=== PATIENT | male | born 1955 | race Caucasian/White ===

== ENCOUNTER 2016-05-08 12:40 | Emergency (ER) | payer OTHER ==
[2016-05-08 12:47] VITALS: BP 141/78; PULSE 86; TEMP 98.5; BMI 27.6
--- NOTE | 2016-05-08 14:08 | PDOC ---
History of Present Illness - General Chief Complaint: Cold Symptoms Stated Complaint: FEVER, NOSE BLEED, HEADACHE,COUGH Time Seen by Provider: 05/08/16 13:07 History Source: Patient Exam Limitations: No Limitations - History of Present Illness Initial Comments: 05/08/16 13:17 Patient here with complaints of sore throat, nasal congestion, left ear pain, and myalgia. Patient states hasn't taking Tylenol flu with moderate effect but decided come to the ER for further evaluation. Patient states the diabetic and checked his sugar this morning which was 120. Patient denies difficulty breathing, lower extremity edema, chest pain, headache, or dizziness. Timing/Duration: reports: constant Severity: reports: moderate Associated Symptoms: reports: cough, earache (left), nasal congestion, sore throat Past History - Past Medical History Allergies/Adverse Reactions: Allergies Allergy/AdvReac Type Severity Reaction Status Date / Time No Known Allergies Allergy Verified 05/08/16 12:47 Home Medications: Ambulatory Orders Glipizide 10 mg PO DAILY 06/27/14 Ibuprofen [Motrin] 800 mg PO TID #20 tablet 06/27/14 Metformin HCl 850 mg PO DAILY 06/27/14 Ondansetron [Zofran *Odt*] 4 mg SL TID #30 od.tablet 06/27/14 Simvastatin [Zocor -] 20 mg PO HS 06/27/14 Amoxicillin - [Amoxicillin 500mg Capsule -] 500 mg PO BID #14 capsule 05/08/16 Cardiac Disorders: Yes Diabetes: Yes (NIDDM) HTN: Yes Hypercholesterolemia: Yes - Surgical History Cardiac Surgery: Yes (STENT) - Psycho/Social/Smoking Cessation Hx Anxiety: No Suicidal Ideation: No Smoking History: Current some day smoker Have you smoked in the past 12 months: No Number of Cigarettes Smoked Daily: 3 Information on smoking cessation initiated: No Hx Alcohol Use: Yes (SOCIAL) Drug/Substance Use Hx: No Substance Use Type: None Patient Lives Alone: No Lives with/in: spouse/SO Review of Systems - Review of Systems Able to Perform ROS?: Yes Constitutional: No: Symptoms Reported HEENTM: Yes: Ear Pain, Nose Congestion, Throat Pain Respiratory: Yes: Symptoms reported, Cough. No: Shortness of Breath Cardiac (ROS): No: Symptoms Reported Musculoskeletal: No: Symptoms Reported Integumentary: No: Symptoms Reported Neurological: No: Symptoms reported Endocrine: No: Symptoms Reported Hematologic/Lymphatic: No: Symptoms Reported *Physical Exam - Vital Signs Last Vital Signs Temp Pulse Resp BP Pulse Ox 98.5 F 86 20 141/78 97 05/08/16 12:42 05/08/16 12:42 05/08/16 12:42 05/08/16 12:42 05/08/16 12:42 - Physical Exam General Appearance: Yes: Nourished, Appropriately Dressed. No: Apparent Distress HEENT: positive: EOMI, SOLA, Pharyngeal Erythema (mild bilateral. no exudate. ) , TM Erythema (left ). negative: Pale Conjunctivae Neck: positive: Supple. negative: Lymphadenopathy (R), Lymphadenopathy (L) Respiratory/Chest: positive: Lungs Clear, Normal Breath Sounds. negative: Respiratory Distress, Accessory Muscle Use Cardiovascular: positive: Regular Rhythm, Regular Rate. negative: Murmur Gastrointestinal/Abdominal: positive: Soft. negative: Tenderness Neurologic: positive: Motor Strength 5/5 (ambulatory) Medical Decision Making - Medical Decision Making 05/08/16 14:13 Patient with URI complaints with pharyngeal erythema and left tympanic erythema. Patient ordered for secondary to myalgia, arthralgia, cough, nasal congestion and intermittent frontal headache for the past 2 days. Patient states took Tylenol flu at 6 AM which did alleviate most of his symptoms including his chills and myalgia. 05/08/16 14:14 influenza swab -. Patient will be discharged on amoxicillin secondary to otitis media to left TM. *DC/Admit/Observation/Transfer Diagnosis at time of Disposition: Otitis media Qualifiers: Otitis media type: unspecified Laterality: left Chronicity: acute - Discharge Dispostion Disposition: HOME Condition at time of disposition: Good - Prescriptions Prescriptions: Amoxicillin - [Amoxicillin 500mg Capsule -] 500 mg PO BID #14 capsule - Referrals Referrals: Maria L Pierre MD [Primary Care Provider] - - Patient Instructions Printed Discharge Instructions: DI for Otitis Media (Middle Ear Infection)- Child Additional Instructions: Please take antibiotics as prescribed until completed. Please take Motrin 600 mg for discomfort. Drink plenty of fluids and rest.
== END 2016-05-08 14:24 | disposition home or self-care (01) ==
LOC: JERFT 12:40
DX: J06.9 Acute upper respiratory infection, unspecified (principal); H66.92 Otitis media, unspecified, left ear; I10 Essential (primary) hypertension; E11.9 Type 2 diabetes mellitus without complications; Z79.84 Long term (current) use of oral hypoglycemic drugs; E78.00 Pure hypercholesterolemia, unspecified; Z95.5 Presence of coronary angioplasty implant and graft; F17.210 Nicotine dependence, cigarettes, uncomplicated
CPT/HCPCS: 87804; 99281-25

== ENCOUNTER 2016-08-15 14:24 | Emergency (ER) | payer OTHER ==
[2016-08-15 14:32] VITALS: BP 125/60; PULSE 88; TEMP 98; BMI 27.6
--- NOTE | 2016-08-15 15:34 | PDOC ---
History of Present Illness - General Chief Complaint: Eye Problem Stated Complaint: RT EYE IRRITATION Time Seen by Provider: 08/15/16 15:18 History Source: Patient Exam Limitations: No Limitations - History of Present Illness Initial Comments: 08/15/16 15:34 My Chief Complaint: rt. eye redness History of Present Illness: Pt. is a 61-year-old male with a history of hyperlipidemia ifo-xzgtnio-[id number] diabetes and hypertension here today reporting that he noticed 3 days ago redness of sclera that occurred without any know injury. His any pain in right eye or any change in his vision. Patient reports that this is the first time he noticed anything like this prior. Patient does not have an chief passenger ship steward/stewardess. Patient wears bifocals. No discharge from rt. eye or photophobia. 08/15/16 15:42 Timing/Duration: changing over time (lessening ) Severity: mild Associated Symptoms: reports: denies symptoms Past History - Past Medical History Allergies/Adverse Reactions: Allergies Allergy/AdvReac Type Severity Reaction Status Date / Time No Known Allergies Allergy Verified 08/15/16 14:29 Home Medications: Ambulatory Orders Glipizide 10 mg PO DAILY 06/27/14 Ibuprofen [Motrin] 800 mg PO TID #20 tablet 06/27/14 Metformin HCl 850 mg PO DAILY 06/27/14 Ondansetron [Zofran *Odt*] 4 mg SL TID #30 od.tablet 06/27/14 Simvastatin [Zocor -] 20 mg PO HS 06/27/14 Amoxicillin - [Amoxicillin 500mg Capsule -] 500 mg PO BID #14 capsule 05/08/16 Clopidogrel Bisulfate [Plavix] 300 mg PO ASDIR 08/15/16 Lisinopril [Prinivil] 5 mg PO ASDIR 08/15/16 Cardiac Disorders: Yes (CAD) Diabetes: Yes (NIDDM) HTN: Yes Hypercholesterolemia: Yes - Surgical History Cardiac Surgery: Yes (STENT) - Psycho/Social/Smoking Cessation Hx Anxiety: No Suicidal Ideation: No Smoking History: Never smoked Have you smoked in the past 12 months: No Number of Cigarettes Smoked Daily: 3 Information on smoking cessation initiated: Yes 'Breaking Loose' booklet given: 08/15/16 Hx Alcohol Use: No Drug/Substance Use Hx: No Substance Use Type: None Review of Systems - Review of Systems Able to Perform ROS?: Yes Constitutional: No: Symptoms Reported HEENTM: Yes: Other (redness of sclera rt. eye partial ) Respiratory: No: Symptoms reported Cardiac (ROS): No: Symptoms Reported ABD/GI: No: Symptoms Reported : No: Symptoms Reported Integumentary: No: Symptoms Reported Neurological: No: Symptoms reported *Physical Exam - Vital Signs Last Vital Signs Temp Pulse Resp BP Pulse Ox 98.0 F 88 18 125/60 100 08/15/16 14:30 08/15/16 14:30 08/15/16 14:30 08/15/16 14:30 08/15/16 14:30 - Physical Exam General Appearance: Yes: Appropriately Dressed HEENT: positive: EOMI, SOLA, Other (sclera rt. eye at 6 pm approx 0. 5 cm diameter of subconjunctiva hemorrhage) Respiratory/Chest: positive: Lungs Clear, Normal Breath Sounds Cardiovascular: positive: Regular Rhythm, Regular Rate, S1, S2 Medical Decision Making - Medical Decision Making 08/15/16 15:37 Pt. is a 61-year-old male with a history of hyperlipidemia non-insulin- dependent diabetes and hypertension here today reporting that he noticed 3 days ago redness of sclera that occurred without any know injury. His any pain in right eye or any change in his vision. Patient reports that this is the first time he noticed anything like this prior. Patient does not have an chief passenger ship steward/stewardess. Patient wears bifocals. right eye subconjunctiva hemorrhage non traumatic PLAN: snellen with glasses snellen 20/20 OD, 20/20 OS, 20/20 OU follow up with opthomologist tomorrow *DC/Admit/Observation/Transfer Diagnosis at time of Disposition: Subconjunctival hemorrhage of right eye - Discharge Dispostion Disposition: HOME Condition at time of disposition: Stable - Referrals Referrals: Maria L Pierre MD [Primary Care Provider] - - Patient Instructions Additional Instructions: With chief passenger ship steward/stewardess Dr.Smitha Cuellar [phone] as soon as possible Return to Emergency if symptoms worsen any eye pain or loss of vision Patient voiced understanding of discharge instructions and all questions were answered
== END 2016-08-15 16:01 | disposition home or self-care (01) ==
LOC: JERFT 14:24
DX: H11.31 Conjunctival hemorrhage, right eye (principal); I10 Essential (primary) hypertension; E11.9 Type 2 diabetes mellitus without complications; Z79.84 Long term (current) use of oral hypoglycemic drugs; E78.00 Pure hypercholesterolemia, unspecified
CPT/HCPCS: 99281-25

== ENCOUNTER 2022-10-09 19:26 | Emergency (ER) | payer OTHER ==
[2022-10-09 19:31] VITALS: TEMP 97.4; BMI 25.0
[2022-10-09] MEDS ORDERED: SODIUM CHLORIDE 0.9% 500 ML INFUS.BAG IV ONE (19:56)
[2022-10-09] MEDS ORDERED: SUCRALFATE 1 GM/10 ML UNIT DOSE CUPS PO ONE (19:57)
[2022-10-09] MEDS ORDERED: FAMOTIDINE 20 MG/50 ML IVPB 20 MG/50 ML MG IVPB ONE ×2 (19:57→20:08)
[2022-10-09] MEDS ORDERED: ACETAMINOPHEN 1000 MG/100 ML BAG IVPB ONE (19:57)
[2022-10-09] MEDS ORDERED: ACETAMINOPHEN INJECTION 100 ML IVPB ONE (20:07)
[2022-10-09] MEDS ORDERED: SUCRALFATE 1 GM TABLET (FP) ONE (20:07)
[2022-10-09 20:34] LABS: BASO % 0.9 % (0-2.0); EOS % 5.7 % (0-4.5); HEMATOCRIT 40.5 % (35.4-49); HEMOGLOBIN 14.2 GM/dL (11.7-16.9); LYMPH % 24.4 % (8-40); MCH 31.1 pg (25.7-33.7); MEAN CELL VOLUME 88.9 fl (80-96); MEAN PLT VOLUME 8.6 fl (7.5-11.1); MONO % 7.2 % (3.8-10.2); NEUT % 61.8 % (42.8-82.8); PLATELET COUNT 230 10^3/uL (134-434); RBC 4.56 M/mm3 (4.00-5.60); RDW 13.4 % (11.9-15.9); WHITE BLOOD COUNT 8.4 K/mm3 (4.0-10.0)
[2022-10-09] MEDS ORDERED: SUCRALFATE 1 GM TABLET (FP) PO ONE (20:39)
[2022-10-09 20:55] LABS: POTASSIUM 4.7 mmol/L (3.5-5.1)
[2022-10-09 20:57] LABS: ALBUMIN 4.4 g/dl (3.4-5.0); BLOOD UREA NITROGEN 13.8 mg/dL (7-18); CALCIUM 9.2 mg/dL (8.5-10.1)
[2022-10-09 21:02] LABS: BILIRUBIN,TOTAL 0.3 mg/dL (0.2-1); TOT PROT 7.5 g/dl (6.4-8.2)
[2022-10-10 00:18] VITALS: BP 145/64; PULSE 78; RESP 17
== END 2022-10-10 00:19 | disposition home or self-care (01) ==
LOC: JER 19:26
PROC: 3E033GC Introduction of Other Therapeutic Substance into Peripheral Vein, Percutaneous Approach (ICD-10-PCS; principal; 2022-10-09)
PROC: 3E033NZ Introduction of Analgesics, Hypnotics, Sedatives into Peripheral Vein, Percutaneous Approach (ICD-10-PCS; 2022-10-09)
DX: R42 Dizziness and giddiness (principal); R14.0 Abdominal distension (gaseous); R10.9 Unspecified abdominal pain; Z20.822 Contact with and (suspected) exposure to COVID-19
CPT/HCPCS: 0241U-QW; 36415; 80053; 82962; 84484; 85025; 93005; 93010; 99284-25

== ENCOUNTER 2024-05-27 11:46 | Emergency (ER) | payer OTHER ==
[2024-05-27 12:05] VITALS: BMI 25.0
[2024-05-27] MEDS ORDERED: ACETAMINOPHEN 500 MG TABLET (FP) ONE (13:08)
[2024-05-27] MEDS: ACETAMINOPHEN 500 MG TABLET (FP) PO ONE (13:13)
[2024-05-27] MEDS ORDERED: ALBUTEROL SO4 2.5/IPRATROPIUM 0.5 INH SOL 3 ML VIAL.NEB. NEB ONE (14:08)
[2024-05-27 14:31] VITALS: BP 118/50; PULSE 77; RESP 19; TEMP 99.7
[2024-05-27] MEDS: ALBUTEROL SO4 2.5/IPRATROPIUM 0.5 INH SOL 3 ML VIAL.NEB. NEB ONE (14:34)
== END 2024-05-27 15:38 | disposition home or self-care (01) ==
LOC: JER 11:46
PROC: 3E0F7GC Introduction of Other Therapeutic Substance into Respiratory Tract, Via Natural or Artificial Opening (ICD-10-PCS; principal; 2024-05-27)
DX: J10.1 Influenza due to other identified influenza virus with other respiratory manifestations (principal); R51.9 Headache, unspecified; R05.9 Cough, unspecified; Z20.822 Contact with and (suspected) exposure to COVID-19
CPT/HCPCS: 0241U-QW; 71046-TC-FY; 82962; 99284-25

== ENCOUNTER 2024-05-28 17:56 | Inpatient (IN) | payer OTHER ==
[2024-05-28 18:03] VITALS: BMI 25.0
[2024-05-28] MEDS ORDERED: MAG HYDROX/AL HYDROX/SIMETH 30 ML UNIT-DOSE CUP ONE (19:22)
[2024-05-28] MEDS ORDERED: ONDANSETRON 4 MG/2 ML VIAL ONE (19:22)
[2024-05-28] MEDS ORDERED: FAMOTIDINE 20 MG/50 ML IVPB 20 MG/50 ML MG IVPB ONE (19:22)
[2024-05-28] MEDS: ONDANSETRON 4 MG/2 ML VIAL IVPUSH ONE (19:38)
[2024-05-28] MEDS: LACTATED RINGERS SOLUTION 1000 ML INFUS.BAG IV ONE (19:38)
[2024-05-28] MEDS: FAMOTIDINE 20 MG/50 ML IVPB 20 MG/50 ML MG IVPB ONE (19:38)
[2024-05-28] MEDS: MAG HYDROX/AL HYDROX/SIMETH 30 ML UNIT-DOSE CUP PO ONE (19:48)
[2024-05-28 20:03] LABS: BASO % 0.2 % (0-2.0); HEMATOCRIT 38.5 % (35.4-49); HEMOGLOBIN 13.3 GM/dL (11.7-16.9); LYMPH % 6.9 % (8-40); MCH 30.5 pg (25.7-33.7); MCHC 34.5 g/dl (32.0-35.9); MEAN CELL VOLUME 88.6 fl (80-96); MEAN PLT VOLUME 8.8 fl (7.5-11.1); NEUT % 84.9 % (42.8-82.8); PLATELET COUNT 147 10^3/uL (134-434); RBC 4.35 M/mm3 (4.00-5.60); RDW 13.2 % (11.9-15.9); WHITE BLOOD COUNT 6.2 K/mm3 (4.0-10.0)
[2024-05-28 20:24] LABS: CHLORIDE 82 mmol/L (98-107); POTASSIUM 3.9 mmol/L (3.5-5.1)
[2024-05-28] MEDS ORDERED: ACETAMINOPHEN INJECTION 100 ML ONE (20:24)
[2024-05-28 20:26] LABS: ALBUMIN 3.8 g/dl (3.4-5.0)
[2024-05-28 20:27] LABS: BLOOD UREA NITROGEN 10.3 mg/dL (7-18); CALCIUM 8.2 mg/dL (8.5-10.1); CO2 25 mmol/L (21-32); GLUCOSE,RANDOM 187 mg/dL (74-106); MAGNESIUM 1.6 mg/dL (1.8-2.4)
[2024-05-28] MEDS: ACETAMINOPHEN 1000 MG/100 ML BAG IVPB ONE (20:27)
[2024-05-28 20:31] LABS: CREATININE 0.8 mg/dL (0.55-1.3); SGOT/AST 30 U/L (15-37); SGPT/ALT 29 U/L (13-61)
[2024-05-28 20:32] LABS: BILIRUBIN,TOTAL 0.5 mg/dL (0.2-1); TOT PROT 6.6 g/dl (6.4-8.2)
[2024-05-28 20:33] LABS: ALK PHOS 66 U/L (45-117)
[2024-05-28 20:37] LABS: ANION GAP 9 mmol/L (4-13); SODIUM 116 mmol/L (136-145)
[2024-05-28] MEDS ORDERED: MAGNESIUM SULFATE IN WATER 2 GM/50 ML IVPB IVPB ONE (20:37)
[2024-05-28] MEDS: MAGNESIUM SULFATE IN WATER 2 GM/50 ML IVPB IVPB ONE (20:47)
[2024-05-28] MEDS: SODIUM CHLORIDE 3% 500 ML/500 ML INFUS.BAG IV ONE (21:10)
[2024-05-28 21:40] LABS: CHLORIDE 84 mmol/L (98-107); POTASSIUM 3.8 mmol/L (3.5-5.1)
[2024-05-28 21:41] LABS: CALCIUM 7.7 mg/dL (8.5-10.1)
[2024-05-28 21:42] LABS: BLOOD UREA NITROGEN 10.1 mg/dL (7-18); CO2 22 mmol/L (21-32); GLUCOSE,RANDOM 191 mg/dL (74-106)
[2024-05-28] MEDS ORDERED: ATORVASTATIN CA 10 MG TABLET (FP) ONE (21:43)
[2024-05-28] MEDS ORDERED: GABAPENTIN 300 MG CAPSULE ONE (21:43)
[2024-05-28] MEDS ORDERED: HEPARIN NA (PORCINE) 5,000 UNITS/ML 1ML VIAL ONE (21:44)
[2024-05-28 21:45] LABS: CREATININE 0.7 mg/dL (0.55-1.3)
[2024-05-28 21:47] LABS: ANION GAP 11 mmol/L (4-13); SODIUM 116 mmol/L (136-145)
[2024-05-28 22:34] LABS: URINE APPEARANCE CLEAR; URINE BILIRUBIN NEGATIVE (NEGATIVE); URINE COLOR YELLOW; URINE GLUCOSE (UA) 2+ (NEGATIVE); URINE KETONE TRACE (NEGATIVE); URINE LEUK ESTERASE NEGATIVE (NEGATIVE); URINE NITRITE NEGATIVE (NEGATIVE); URINE PROTEIN NEGATIVE (NEGATIVE); URINE UROBILINOGEN 0.2 mg/dL (0.2-1.0)
[2024-05-29 01:46] LABS: POTASSIUM 3.8 mmol/L (3.5-5.1)
[2024-05-29 01:47] LABS: CALCIUM 7.9 mg/dL (8.5-10.1)
[2024-05-29 01:48] LABS: BLOOD UREA NITROGEN 10.4 mg/dL (7-18)
[2024-05-29 01:51] LABS: CREATININE 0.7 mg/dL (0.55-1.3)
[2024-05-29] MEDS ORDERED: ACETAMINOPHEN 325 MG TABLET (FP) PO PRN (05:34)
[2024-05-29 08:01] LABS: BASO % 0.2 % (0-2.0); HEMATOCRIT 37.2 % (35.4-49); HEMOGLOBIN 13.4 GM/dL (11.7-16.9); LYMPH % 9.9 % (8-40); MCH 31.4 pg (25.7-33.7); MEAN CELL VOLUME 87.3 fl (80-96); MEAN PLT VOLUME 8.7 fl (7.5-11.1); MONO % 8.9 % (3.8-10.2); PLATELET COUNT 144 10^3/uL (134-434); RBC 4.25 M/mm3 (4.00-5.60); RDW 13.1 % (11.9-15.9); WHITE BLOOD COUNT 5.8 K/mm3 (4.0-10.0)
[2024-05-29 08:18] LABS: POTASSIUM 3.8 mmol/L (3.5-5.1)
[2024-05-29 08:24] LABS: CALCIUM 8.1 mg/dL (8.5-10.1)
[2024-05-29 08:25] LABS: BLOOD UREA NITROGEN 10.9 mg/dL (7-18); MAGNESIUM 2.1 mg/dL (1.8-2.4)
[2024-05-29 08:28] LABS: CREATININE 0.8 mg/dL (0.55-1.3); PHOSPHOROUS 3.5 mg/dL (2.5-4.9)
[2024-05-29] MEDS ORDERED: INSULIN ASPART SLIDING SCALE (NOVOLOG) 1 VIAL SQ ONE (09:25)
[2024-05-29] MEDS: INSULIN ASPART SLIDING SCALE (NOVOLOG) 1 VIAL SQ SCH (09:30)
[2024-05-29] MEDS: MUPIROCIN 2% TOPICAL OINTMENT FOR DECOLONIZATION NS SCH (11:25)
[2024-05-29] MEDS ORDERED: HEPARIN NA (PORCINE) 5,000 UNITS/ML 1ML VIAL ONE ×2 (11:30→21:34)
[2024-05-29] MEDS: HEPARIN NA (PORCINE) 5,000 UNITS/ML 1ML VIAL SQ SCH (11:40)
[2024-05-29 13:24] LABS: POTASSIUM 3.7 mmol/L (3.5-5.1)
[2024-05-29 13:27] LABS: BLOOD UREA NITROGEN 12.4 mg/dL (7-18); CALCIUM 8.1 mg/dL (8.5-10.1)
[2024-05-29 13:30] LABS: CREATININE 0.8 mg/dL (0.55-1.3); MAGNESIUM 2.1 mg/dL (1.8-2.4); PHOSPHOROUS 3.7 mg/dL (2.5-4.9)
[2024-05-29] MEDS ORDERED: ONDANSETRON 4 MG/2 ML VIAL ONE (14:31)
[2024-05-29] MEDS: ONDANSETRON 4 MG/2 ML VIAL IVPUSH PRN (14:35)
[2024-05-29] MEDS ORDERED: methylPREDNISolone NA SUCC 40 MG/1 ML VIAL ONE (15:39)
[2024-05-29] MEDS: methylPREDNISolone NA SUCC 40 MG/1 ML VIAL IVPUSH SCH (15:40)
[2024-05-29] MEDS ORDERED: ALBUTEROL SO4 2.5/IPRATROPIUM 0.5 INH SOL 3 ML VIAL.NEB. NEB ONE ×2 (16:51→20:07)
[2024-05-29] MEDS: ALBUTEROL SO4 2.5/IPRATROPIUM 0.5 INH SOL 3 ML VIAL.NEB. NEB SCH (16:55)
[2024-05-29 20:44] LABS: BLOOD UREA NITROGEN 13.5 mg/dL (7-18); CALCIUM 8.2 mg/dL (8.5-10.1)
[2024-05-29 20:48] LABS: CREATININE 0.9 mg/dL (0.55-1.3)
[2024-05-29] MEDS ORDERED: ATORVASTATIN CA 10 MG TABLET (FP) ONE (21:33)
[2024-05-29] MEDS ORDERED: OSELTAMIVIR PHOSPHATE 75 MG CAPSULE ONE (21:34)
[2024-05-29] MEDS: ATORVASTATIN CA 10 MG TABLET (FP) PO SCH (21:46)
[2024-05-29] MEDS: OSELTAMIVIR PHOSPHATE 75 MG CAPSULE PO SCH (21:46)
[2024-05-30 06:12] VITALS: RESP 18
[2024-05-30 07:43] LABS: ALBUMIN 3.6 g/dl (3.4-5.0)
[2024-05-30 07:44] LABS: BLOOD UREA NITROGEN 15.2 mg/dL (7-18)
[2024-05-30 07:45] LABS: CALCIUM 8.5 mg/dL (8.5-10.1); MAGNESIUM 2.3 mg/dL (1.8-2.4)
[2024-05-30 07:49] LABS: BILIRUBIN,TOTAL 0.4 mg/dL (0.2-1); CREATININE 0.9 mg/dL (0.55-1.3); PHOSPHOROUS 4.6 mg/dL (2.5-4.9)
[2024-05-30 07:50] LABS: TOT PROT 6.8 g/dl (6.4-8.2)
[2024-05-30] MEDS ORDERED: ACETAMINOPHEN 325 MG TABLET (FP) PO PRN (08:02)
[2024-05-30] MEDS ORDERED: ONDANSETRON 4 MG/2 ML VIAL IVPUSH PRN (08:02)
[2024-05-30 08:22] LABS: BASO % 0.2 % (0-2.0); HEMATOCRIT 41.2 % (35.4-49); HEMOGLOBIN 13.9 GM/dL (11.7-16.9); LYMPH % 16.3 % (8-40); MCHC 33.8 g/dl (32.0-35.9); MEAN CELL VOLUME 88.6 fl (80-96); MEAN PLT VOLUME 9.3 fl (7.5-11.1); MONO % 12.8 % (3.8-10.2); NEUT % 70.7 % (42.8-82.8); PLATELET COUNT 164 10^3/uL (134-434); RBC 4.65 M/mm3 (4.00-5.60); RDW 13.3 % (11.9-15.9)
[2024-05-30] MEDS: ASPIRIN COATED 81 MG TABLET.EC PO SCH (10:11)
[2024-05-30] MEDS: LISINOPRIL 20 MG TABLET PO SCH (10:12)
[2024-05-30] MEDS: HEPARIN NA (PORCINE) 5,000 UNITS/ML 1ML VIAL SQ SCH (10:12)
[2024-05-30] MEDS: metoPROLOL SUCCINATE 25 MG TAB.SR.24H (FP) PO SCH (10:12)
[2024-05-30] MEDS: CHLORHEXIDINE GLUCONATE 4% CLEANSER FOR DECOLONIZATION TP SCH (10:13)
[2024-05-30] MEDS ORDERED: SODIUM CHLORIDE NASAL SPRAY 44 ML BOTTLE NS PRN (12:59)
[2024-05-30 14:24] LABS: POTASSIUM 4.1 mmol/L (3.5-5.1)
[2024-05-30 14:25] LABS: CALCIUM 8.8 mg/dL (8.5-10.1)
[2024-05-30 14:26] LABS: BLOOD UREA NITROGEN 19.5 mg/dL (7-18)
[2024-05-30 14:28] LABS: CREATININE 0.8 mg/dL (0.55-1.3)
[2024-05-30] MEDS: FLUTICASONE PROP 0.05% 16 GM NASAL SPRAY NS SCH (15:26)
[2024-05-30] MEDS: MUPIROCIN 2% TOPICAL OINTMENT FOR DECOLONIZATION NS SCH (15:27)
[2024-05-30] MEDS: INSULIN ASPART SLIDING SCALE (NOVOLOG) 1 VIAL SQ SCH (18:10)
[2024-05-30] MEDS ORDERED: CHLORHEXIDINE GLUCONATE 4% CLEANSER FOR DECOLONIZATION TP SCH (22:00)
[2024-05-31 09:16] LABS: BASO % 0.3 % (0-2.0); HEMATOCRIT 43.6 % (35.4-49); HEMOGLOBIN 14.5 GM/dL (11.7-16.9); MCHC 33.3 g/dl (32.0-35.9); MEAN CELL VOLUME 90.1 fl (80-96); MEAN PLT VOLUME 9.2 fl (7.5-11.1); MONO % 8.3 % (3.8-10.2); NEUT % 73.4 % (42.8-82.8); PLATELET COUNT 198 10^3/uL (134-434); RBC 4.84 M/mm3 (4.00-5.60); RDW 13.1 % (11.9-15.9); WHITE BLOOD COUNT 8.2 K/mm3 (4.0-10.0)
[2024-05-31 09:46] LABS: POTASSIUM 4.3 mmol/L (3.5-5.1)
[2024-05-31 10:00] LABS: ALBUMIN 3.8 g/dl (3.4-5.0); CALCIUM 8.9 mg/dL (8.5-10.1)
[2024-05-31 10:01] LABS: MAGNESIUM 2.4 mg/dL (1.8-2.4)
[2024-05-31 10:05] LABS: BILIRUBIN,TOTAL 0.6 mg/dL (0.2-1); CREATININE 0.9 mg/dL (0.55-1.3)
[2024-05-31 10:06] LABS: TOT PROT 6.9 g/dl (6.4-8.2)
[2024-05-31] MEDS: INSULIN (LEVEMIR) 100 UNITS/ML UNITS SQ ONE ×2 (17:56→18:00)
[2024-06-01] MEDS ORDERED: ONDANSETRON 4 MG/2 ML VIAL IVPUSH PRN (01:54)
[2024-06-01] MEDS ORDERED: SODIUM CHLORIDE NASAL SPRAY 44 ML BOTTLE NS PRN (01:54)
[2024-06-01] MEDS ORDERED: ACETAMINOPHEN 325 MG TABLET (FP) PO PRN (01:54)
[2024-06-01] MEDS: INSULIN ASPART SLIDING SCALE (NOVOLOG) 1 VIAL SQ SCH (06:18)
[2024-06-01] MEDS: ALBUTEROL SO4 2.5/IPRATROPIUM 0.5 INH SOL 3 ML VIAL.NEB. NEB SCH (07:17)
[2024-06-01] MEDS: ASPIRIN COATED 81 MG TABLET.EC PO SCH (09:56)
[2024-06-01] MEDS: HEPARIN NA (PORCINE) 5,000 UNITS/ML 1ML VIAL SQ SCH (09:56)
[2024-06-01] MEDS: metoPROLOL SUCCINATE 25 MG TAB.SR.24H (FP) PO SCH (09:56)
[2024-06-01] MEDS: OSELTAMIVIR PHOSPHATE 75 MG CAPSULE PO SCH (09:57)
[2024-06-01] MEDS: LISINOPRIL 20 MG TABLET PO SCH (09:57)
[2024-06-01 10:00] LABS: BASO % 0.1 % (0-2.0); HEMATOCRIT 41.4 % (35.4-49); HEMOGLOBIN 13.9 GM/dL (11.7-16.9); LYMPH % 12.1 % (8-40); MCH 30.2 pg (25.7-33.7); MCHC 33.6 g/dl (32.0-35.9); MEAN CELL VOLUME 89.8 fl (80-96); MEAN PLT VOLUME 8.8 fl (7.5-11.1); MONO % 7.1 % (3.8-10.2); NEUT % 80.7 % (42.8-82.8); PLATELET COUNT 207 10^3/uL (134-434); RBC 4.61 M/mm3 (4.00-5.60); RDW 13.2 % (11.9-15.9); WHITE BLOOD COUNT 10.7 K/mm3 (4.0-10.0)
[2024-06-01] MEDS: FLUTICASONE PROP 0.05% 16 GM NASAL SPRAY NS SCH (10:01)
[2024-06-01 10:19] LABS: POTASSIUM 3.8 mmol/L (3.5-5.1)
[2024-06-01 10:35] LABS: ALBUMIN 3.8 g/dl (3.4-5.0); BLOOD UREA NITROGEN 31.5 mg/dL (7-18); CALCIUM 9.1 mg/dL (8.5-10.1)
[2024-06-01 10:36] LABS: MAGNESIUM 2.5 mg/dL (1.8-2.4)
[2024-06-01 10:40] LABS: BILIRUBIN,TOTAL 0.7 mg/dL (0.2-1)
[2024-06-01 14:44] VITALS: BP 109/67; PULSE 67; TEMP 98.2
[2024-06-01] MEDS ORDERED: ATORVASTATIN CA 10 MG TABLET (FP) PO SCH (22:00)
== END 2024-06-01 17:30 | disposition home or self-care (01) | DRG 194 ==
LOC: JER 17:56 → JERBED 21:54 → J4W 05-30 06:55 → J6S 05-30 21:00
PROVIDERS: ADMIT Internal Medicine Pulmonary Disease; ATTEND Internal Medicine
DX: J10.1 Influenza due to other identified influenza virus with other respiratory manifestations (principal); E87.1 Hypo-osmolality and hyponatremia; I10 Essential (primary) hypertension; I25.10 Atherosclerotic heart disease of native coronary artery without angina pectoris; E11.9 Type 2 diabetes mellitus without complications; Z95.5 Presence of coronary angioplasty implant and graft
CPT/HCPCS: 0241U-QW; 36415; 71046-TC-FY; 80048; 80053; 81003; 82962; 83036; 83690; 83735; 83930; 83935; 84100; 84300; 84443; 84478; 84484; 85025; 93005; 93010; 94640; 97116-GP; 97161-GP; 99285-25; J0131; J1644

== ENCOUNTER 2024-11-28 18:49 | Emergency (ER) | payer OTHER ==
[2024-11-28 19:13] VITALS: BP 133/67; PULSE 72; RESP 18; TEMP 98.1; BMI 24.7
[2024-11-28] MEDS ORDERED: ACETAMINOPHEN 325 MG TABLET (FP) ONE (20:19)
[2024-11-28] MEDS: ACETAMINOPHEN 325 MG TABLET (FP) PO ONE (20:23)
== END 2024-11-28 22:32 | disposition home or self-care (01) ==
LOC: JERFT 18:49
PROC: 0HQGXZZ Repair Left Hand Skin, External Approach (ICD-10-PCS; principal; 2024-11-28)
DX: S61.012A Laceration without foreign body of left thumb without damage to nail, initial encounter (principal); E11.9 Type 2 diabetes mellitus without complications; W31.2XXA Contact with powered woodworking and forming machines, initial encounter; Y92.009 Unspecified place in unspecified non-institutional (private) residence as the place of occurrence of the external cause
CPT/HCPCS: 12001; 73130-TC-LT-FY; 99283-25